=== PATIENT | female | born 1955 | race Caucasian/White ===

== ENCOUNTER → 2017-12-10 | Outpatient (CLI) | payer OTHER ==
--- NOTE | 2017-12-14 07:44 | MAMMOGRAPHY REPORT ---
BILATERAL DIGITAL SCREENING MAMMOGRAM TOMOSYNTHESIS WITH CAD: 12/10/2017 CLINICAL HISTORY: Routine screening. Patient has no complaints. TECHNIQUE: The study was acquired using full field digital technology and interpreted from soft copy. Breast tomosynthesis in addition to standard 2D mammography was performed. Current study was also ev aluated with a Computer Aided Detection (CAD) system. COMPARISON: Comparison is made to exams dated: 03/09/2013 mammogram, 11/13/2011 mammogram, 10/18/2010 mammogram, 10/16/2009 mammogram - [facility], and 09/12/2008. BREAST COMPOSITION: The tissue of both breasts is heterogeneously dense, which may obscure small mass es. FINDINGS: There is an oval circumscribed 6 mm mass within the right superior breast at approximately 12:00, for which spot compression tomosynthesis views and possible breast ultrasound are recommended for furthe r evaluation. The remainder of both breasts are stable compared to prior exams, without suspicious masses, calcific ations, or areas of architectural distortion noted. Scattered bilateral benign-appearing calcificati ons are again noted. IMPRESSION: ACR BI-RADS CATEGORY 0: INCOMPLETE EVALUATION: NEED ADDITIONAL IMAGING EVALUATION Right breast mass, for which additional imaging evaluation is recommended. The patient will be billings d to schedule an appointment. Some breast cancers are not detected with mammography. A negative mammographic report should not ting y biopsy if a clinically suggestive mass is present. Monse Miranda M.D. /:12/10/2017 16:04:03 Director Of Employee Development: Coni Johnson RT(R)(M), [facility] letter sent: Addl Imaging 0 BI-RADS Code: ACR BI-RADS Category 0: Incomplete Evaluation: Need Additional Imaging Evaluation
== END | disposition home or self-care (01) ==
LOC: C.MAMM 11:29
PROVIDERS: ATTEND Obstetrics & Gynecology
DX: Z12.31 Encounter for screening mammogram for malignant neoplasm of breast (principal); N63.10 Unspecified lump in the right breast, unspecified quadrant

== ENCOUNTER → 2017-12-22 | Outpatient (CLI) | payer OTHER ==
--- NOTE | 2017-12-22 15:22 | MAMMOGRAPHY REPORT ---
UNILATERAL RIGHT DIGITAL DIAGNOSTIC MAMMOGRAM TOMOSYNTHESIS AND RIGHT ULTRASOUND: 12/22/2017 CLINICAL HISTORY: 62-year-old woman called back from screening mammography for a 6 mm mass in the rig ht superior breast at approximately 12:00. TECHNIQUE: Spot compression right CC and MLO tomosynthesis images; full-field right CC and MLO tomosy nthesis images were obtained after placement of a skin BB marker. COMPARISON: Comparison is made to exams dated: 12/10/2017 mammogram, 03/09/2013 mammogram, 11/13/2011 mammogram, 10/18/2010 mammogram, and 10/16/2009 mammogram - [facility]. Ultrasound of the right breast was performed. BREAST COMPOSITION: The tissue of right breast is heterogeneously dense, which may obscure small mass es. FINDINGS: The spot compression tomosynthesis views of the right breast demonstrate a persistent oval versus dumbbell-shaped circumscribed mass measuring 3.1 x 5.9 x 3.2 mm, located in the approximate 12 :00 to 12:30 right breast. There is possible internal layering calcification. No suspicious cluster ed calcification or architectural distortion. Further evaluation with ultrasound was performed. Targeted ultrasound was performed in the 12:00 to 1:00 right breast. In the 12:30 axis, 3 cm from th e nipple, there is a circumscribed anechoic benign simple cyst with thin internal nonvascular septati on which measures 5.6 x 2.7 x 2.8 mm. This is thought to correspond with the mammographic finding bu t for confirmation, a skin BB was placed overlying the skin of the right 12:30 breast and full-field right CC and MLO views were performed. Both of these images demonstrate alignment of the BB marker w ith the mammographic mass in question, confirming a benign cyst. Recommend return to annual screenin g mammography schedule. IMPRESSION: ACR BI-RADS CATEGORY 2: BENIGN, ULTRASOUND ACR BI-RADS CATEGORY 2: BENIGN The newly visualized mammographic mass in the right breast corresponds with an anechoic benign 5.6 mm cyst seen in the 12:30 right breast, 3 cm from the nipple on ultrasound. There is no mammographic o r targeted sonographic evidence of malignancy in the right breast. Return to annual mammogram screen ing schedule is recommended.(12/11/2018) The patient has been verbally notified of the results. Some breast cancers are not detected with mammography. A negative mammographic report should not ting y biopsy if a clinically suggestive mass is present. Sheri Palacio M.D. ay/:12/22/2017 11:10:43 Buy Boat Operator: RT Lupis(R)(M), [facility]; [facility] letter sent: Normal 1/2 OVERALL STUDY BIRADS: 2 Benign
== END | disposition home or self-care (01) ==
LOC: C.MAMM 10:37
PROVIDERS: ATTEND Obstetrics & Gynecology
DX: N60.02 Solitary cyst of left breast (principal)

== ENCOUNTER 2022-04-06 11:43 | Inpatient (IN) ==
[2022-04-06] MEDS ORDERED: ACETAMINOPHEN 325 MG TAB PO STA ×2 (12:48→16:53)
--- NOTE | 2022-04-06 12:53 | Emergency Department Note ---
History of Present Illness General Chief complaint: Leg Injury/Pain Stated complaint: left leg injury Time Seen by Provider: 04/06/22 12:37 History of Present Illness Maximum Pain Intensity: 9 This is a 66-year-old female who presents with an injury to her left lower leg secondary to open fall that occurred prior to arrival while hiking. She was walking down a slope with leaves and rocks on it when she slipped and injured the leg. This was not a significant fall, did not hit her head or injure anything else. She basically sat down awkwardly on the left leg. Has been unable to bear weight on the left leg since the accident. Denies any headache, neck pain, back pain, chest pain, shortness of breath, abdominal pain, nausea, vomiting, numbness in the toes.. No prior injuries or surgeries to this leg, ankle, or foot. Has not taken anything for pain Not on blood thinners. Home Medications Medication Instructions Recorded Confirmed Type acetaminophen 325 mg capsule 325 mg PO QID PRN 06/18/21 02/17/22 History (Tylenol) ibuprofen 200 mg capsule (Motrin 200 mg PO Q6H PRN 06/18/21 02/17/22 History IB) calcium carbonate 600 mg calcium 600 mg PO BID 11/11/21 02/17/22 History (1,500 mg) tablet diphenhydramine HCl 25 mg tablet 25 mg PO TID PRN 11/11/21 02/17/22 History (Allergy (diphenhydramine)) Allergies Allergy/AdvReac Type Severity Reaction Status Date / Time Sulfa (Sulfonamide Allergy Mild Rash Verified 02/17/22 11:42 Antibiotics) Past Med/Surg History Medical History Anxiety no meds Closed fracture of left distal tibia History of colon polyps History of uterine fibroid Migraine Plantar wart, left foot Sciatica of left side Severe needle phobia Surgical History H/O dilation and curettage History of colonoscopy History of open reduction and internal fixation (ORIF) procedure right leg--no hardware History of tooth extraction Family History Sister Family history of reaction to anesthesia unsure what happened...questionable allergic reaction, pt has no idea and states she can't talk with sister Father Family history of esophageal cancer Aunt Family hx of colon cancer Breast cancer paternal Colorectal cancer paternal aunt Dyslipidemia paternal Mother Dyslipidemia Hypertension Kidney stones Denies family history of Ovarian cancer Prostate cancer Lung cancer Social History Smoking Status: Never smoker Second Hand Exposure: No; Do You Dip or Chew Tobacco: No; Tobacco Cessation Education Requested by Patient: No Hx Alcohol Use: No Hx Substance Use: No Preferred Language: Yoruba Communication Ability: Effective Visual Impairment: Limited Hearing Ability: Normal Health Care Attorney Required: No Beliefs That Will Affect Care: None Current Living Situation: Significant Other Current Living Situation Comment: Lives with a friend current occupational status: retired Other Information That Helps Us Care for You: No other: Feels Safe at Home: Yes Safety Concerns: Feels Safe At This Time Childhood Exposure to Second-Hand Smoke: No caffeine: Yes Dental Care, Regularly: Yes Physical Activity Frequency: 5-6 Times per Week Seatbelt Use: always Sunscreen Use: Yes Assistive Devices: Glasses Review of Systems See HPI for pertinent positives & negatives. and A total of 10 systems reviewed and were otherwise negative Physical Exam Vital Signs Vital Signs - 24 hr 04/06/22 11:50 Temperature 98.1 F Temperature Source Temporal Artery Scan Pulse Rate 88 Pulse Rhythm Regular Pulse Strength Normal Respiratory Rate 20 Respiratory Effort / Characteristics Non-Labored Spontaneous Respiratory Depth Normal Respiratory Pattern Regular Blood Pressure 159/101 H Blood Pressure Mean 120 Blood Pressure Position Sitting Pulse Oximetry 97 Oxygen Delivery Method Room Air Sepsis Recent Fever Within 48 Hours No Sepsis New/Unexplained Change in Mental Status N/A Sepsis Action Taken by Nursing No Action Required CONSTITUTIONAL: Well developed, well nourished, appears to be in pain. HEAD: Normocephalic, atraumatic. NECK: Full active range of motion. No spinous process tenderness. Full range of motion without eliciting pain. RESPIRATORY: Breathing unlabored and symmetric. Lungs clear to auscultation bilaterally. No wheeze, rales, or rhonchi. CARDIOVASCULAR: Regular rate and rhythm. No murmurs, rubs, or gallops. DP and PT pulses 2+ bilaterally. CHEST: Nontender, no crepitus. ABDOMEN: Normal bowel sounds. Soft, nontender, no peritonitis. No masses. MUSCULOSKELETAL: Moves bilateral upper and right lower extremities at all joints without pain or difficulty. Pelvis stable, nontender. Left lower extremity: Deformity appreciated in the distal lower leg, no skin disruption, no ecchymosis. There is mild swelling. Hip and knee full range of motion nontender. No proximal fibular tenderness. There is lateral lower leg tenderness. Able to move all toes. Back: No thoracic, lumbar, sacral spinous process tenderness. No step-off deformity. SKIN: [place], warm, dry. Capillary refill less than 2 seconds in bilateral toes. NEUROLOGIC: Awake, alert, oriented. Gaze is conjugate. Face symmetric. No sensory deficits in bilateral toes. PSYCHIATRIC: Anxious appearing, otherwise appropriate. Course Consultations Consultation #1: Spoke with Dr. White (orthopedics on-call) regarding the case and imaging findings. He visualized the images. Recommends hospital admission with Ortho consult. Will surgically repair tomorrow. Requests a CT scan for surgical planning purposes. Posterior short leg splint recommended. Consultation #2: Discussed case with Dr. Cox (hospitalist) who agrees to admit the patient. Administered Medications Acetaminophen (Acetaminophen 325 Mg Tab) 650 mg PO Q4H PRN PRN Reason: Mild Pain Or Fever Stop: 05/06/22 18:14 Last Admin: 04/06/22 20:16 Dose: 650 mg Documented By: OTIS Calcium Carbonate (Calcium Carbonate 1250mg Tab) 1,250 mg PO BID QUIANA Stop: 05/06/22 20:59 Last Admin: 04/06/22 20:16 Dose: 1,250 mg Documented By: OTIS Discontinued Medications Acetaminophen (Acetaminophen 325 Mg Tab) 650 mg PO NOW STA Stop: 04/06/22 12:49 Last Admin: 04/06/22 12:58 Dose: 650 mg Documented By: ED Acetaminophen (Acetaminophen 325 Mg Tab) 650 mg PO NOW STA Stop: 04/06/22 16:54 Last Admin: 04/06/22 17:09 Dose: 650 mg Documented By: SLB Medical Decision Making Differential Diagnosis Fracture, dislocation, subluxation, compartment syndrome, sprain, strain, neurovascular injury, among other pathology Medical Records Attestation: I reviewed the patient's medical records. Imaging Data Radiologist's Impression: Ankle X-Ray 04/06/22 12:48 XR tibia fibula LT 2V, XR ankle LT min 3V routine CLINICAL HISTORY: lateral lower leg injury TECHNIQUE: 2 radiographic views of the right leg and 3 views of the left ankle were obtained. Comparison: None available at the time of this dictation. FINDINGS: Comminuted intra-articular fracture of the distal tibial diaphysis and spiral fracture of the distal fibular metaphysis. Joint spaces are well-preserved. Soft tissue swelling is seen. IMPRESSION: Comminuted intra-articular fracture of the distal tibia and spiral fracture of the distal fibula with associated soft tissue swelling. The tibiofibular syndesmosis is likely involved. ACT 112: Negative or not required by law. Electronically signed by: Nathan Bettencourt M.D. 04/06/2022 1:49 PM Tibia/Fibula X-Ray 04/06/22 12:49 XR tibia fibula LT 2V, XR ankle LT min 3V routine CLINICAL HISTORY: lateral lower leg injury TECHNIQUE: 2 radiographic views of the right leg and 3 views of the left ankle were obtained. Comparison: None available at the time of this dictation. FINDINGS: Comminuted intra-articular fracture of the distal tibial diaphysis and spiral fracture of the distal fibular metaphysis. Joint spaces are well-preserved. Soft tissue swelling is seen. IMPRESSION: Comminuted intra-articular fracture of the distal tibia and spiral fracture of the distal fibula with associated soft tissue swelling. The tibiofibular syndesmosis is likely involved. ACT 112: Negative or not required by law. Electronically signed by: Nathan Bettencourt M.D. 04/06/2022 1:[address] 04/06/22 14:13 CT ankle LT wo con CLINICAL HISTORY: tib fib fracture TECHNIQUE: Multidetector row helical CT of the tibia and fibula was performed without intravenous contrast. Coronal and sagittal reformations were obtained. Automated dose lowering techniques and/or adjustment according to patient size were utilized for this examination. CT DOSE: 191.37 mGy.cm Comparison: Comparison is made to ankle radiograph 04/06/2022 FINDINGS: There is a mildly comminuted fracture of the fibula. There is a comminuted fracture of the distal tibia which extends to the articular surface. In addition there is a fracture of the lateral aspect of the tibia at the tibiofibular syndesmosis. There is no widening of the tibiofibular syndesmosis. A small joint effusion is noted. Soft tissue swelling is seen. IMPRESSION: Comminuted fractures of the distal tibia and fibula with associated soft tissue swelling. The tibial fracture extends to the distal tibiofibular articulation as well as the articular surface with the talus. ACT 112: Negative or not required by law. Electronically signed by: Nathan Bettencourt M.D. 04/06/2022 4:34 PM MDM Narrative 66-year-old female presents with an injury to the left lower leg secondary to a slip and fall while hiking. Physical exam findings as above appear to be isolated to the left lower leg. No additional injuries identified on thorough physical exam. She is neurovascularly intact. Pain control was offered to the patient. She only wanted to take Tylenol due to her concerns with narcotic medication and addiction. X-ray of the left ankle and tibia/fibula demonstrates comminuted fractures of the distal tibia and fibula. Case discussed with orthopedics as described above who requested inpatient hospitalist admission and will surgically repair tomorrow. Spoke with hospitalist as described above who agrees to admit the patient. Case discussed with ED attending Dr. Zimmerman. CT of the ankle pending at time of admission. Short leg posterior and stirrup Ortho-Glass splint applied by ballistic technician and I confirmed appropriate application and neurovascular intact status after application. Impression & Plan Fracture of tibia and fibula, Fall from slip, trip, or stumble Discharge Plan Visit Data Chief Complaint: Leg Injury/Pain Stated Complaint: left leg injury ED Provider: Jalen Zimmerman ED Midlevel Provider: Tyrell [place] Discharge Problem: Fracture of tibia and fibula, Fall from slip, trip, or stumble Patient Disposition: Admitted As Inpatient Condition: Fair Discharge Instructions Interventions: ED Discharge Assessment Last Done: 04/06/22 17:55
--- NOTE | 2022-04-06 13:50 | XRay Report ---
XR tibia fibula LT 2V, XR ankle LT min 3V routine CLINICAL HISTORY: lateral lower leg injury TECHNIQUE: 2 radiographic views of the right leg and 3 views of the left ankle were obtained. Comparison: None available at the time of this dictation. FINDINGS: Comminuted intra-articular fracture of the distal tibial diaphysis and spiral fracture of the distal fibular metaphysis. Joint spaces are well-preserved. Soft tissue swelling is seen. IMPRESSION: Comminuted intra-articular fracture of the distal tibia and spiral fracture of the distal fibula with associated soft tissue swelling. The tibiofibular syndesmosis is likely involved. ACT 112: Negative or not required by law. Electronically signed by: Nathan Bettencourt M.D. 04/06/2022 1:49 PM
--- NOTE | 2022-04-06 14:18 | History & Physical Report ---
Date of Service April 06, 2022 Assessment & Plan (1) Closed fracture of left distal tibia: Plan: - XR: Comminuted intra-articular fracture of the distal tibia and spiral fracture of the distal fibula with associated soft tissue swelling. The tibiofibular syndesmosis is likely involved. - NV intact. - CT ordered per orthopedic recommendations. - Orthopedic consulted, recommending medical admission and will see patient in AM for surgical repair. - Pain control: Tylenol is working well for now, patient is hesitant to use narcotics for pain control but also expresses she does not want to be in severe pain overnight. Agreeable to low dose IV morphine for moderate or severe pain not controlled with Tylenol. - NPO at midnight for OR tomorrow. - NV q4h. Plan - Admit to med/surg. History of Present Illness Chief Complaint: Fall this afternoon while hiking Primary Care Provider: Amada Suarez MD Susan Bucio is a previously healthy 66-year-old female who is presenting to the ED today after a fall during a hike today. She was walking down hill and slipped on some leaves, landing on her left leg. She had terrible pain immediatley and was nearly certain she broke something. She has been unable to walk on the leg. She denies hitting her head or any loss of consciousness. She is not having pain elsewhere except for in her left ankle. She is not on any blood thinners, actually she takes no regular medications at home. She received Tylenol in the ED for pain which has been helping. Imaging shows comminuted intra-articular fracture of the distal tibia and spiral fracture of the distal fibula with associated soft tissue swelling and tibi ofibular stenosis. The case was discussed with the on-call orthopedist, who recommended admission to medicine. CT of left leg ordered. Allergies Allergy/AdvReac Type Severity Reaction Status Date / Time Sulfa (Sulfonamide Allergy Mild Rash Verified 02/17/22 11:42 Antibiotics) Home Medications Medication Instructions Recorded Confirmed Type acetaminophen 325 mg capsule 325 mg PO QID PRN 06/18/21 02/17/22 History (Tylenol) ibuprofen 200 mg capsule (Motrin 200 mg PO Q6H PRN 06/18/21 02/17/22 History IB) calcium carbonate 600 mg calcium 600 mg PO BID 11/11/21 02/17/22 History (1,500 mg) tablet diphenhydramine HCl 25 mg tablet 25 mg PO TID PRN 11/11/21 02/17/22 History (Allergy (diphenhydramine)) Past Med/Surg History Medical History (Updated 04/06/22 @ 14:52 by Magalis Hughes PA-C) Anxiety no meds Closed fracture of left distal tibia History of colon polyps History of uterine fibroid Migraine Plantar wart, left foot Sciatica of left side Severe needle phobia Surgical History H/O dilation and curettage History of colonoscopy History of open reduction and internal fixation (ORIF) procedure right leg--no hardware History of tooth extraction Family History Sister Family history of reaction to anesthesia unsure what happened...questionable allergic reaction, pt has no idea and states she can't talk with sister Father Family history of esophageal cancer Aunt Family hx of colon cancer Breast cancer paternal Colorectal cancer paternal aunt Dyslipidemia paternal Mother Dyslipidemia Hypertension Kidney stones Denies family history of Ovarian cancer Prostate cancer Lung cancer Social History Smoking Status: Never smoker Second Hand Exposure: No; Hx Alcohol Use: No Hx Substance Use: No Preferred Language: Ukrainian Communication Ability: Effective Visual Impairment: Limited Hearing Ability: Normal Preschool Assistant Teacher Required: No Beliefs That Will Affect Care: None Current Living Situation: Other Current Living Situation Comment: Lives with a friend current occupational status: retired other: Feels Safe at Home: Yes Childhood Exposure to Second-Hand Smoke: No caffeine: Yes Dental Care, Regularly: Yes Physical Activity Frequency: 5-6 Times per Week Seatbelt Use: always Sunscreen Use: Yes Assistive Devices: Glasses Review of Systems Review of Systems: Constitutional: No fever/chills, weakness, fatigue, myalgias, anorexia, night sweats Eyes: No diplopia, no worsening or blurred vision ENT: normal hearing, no trouble swallowing Respiratory: No cough, sputum, dyspnea at rest or on exertion Cardiovascular: No chest pain, tightness or palpitations Abdomen: No pain, nausea, vomiting, diarrhea or constipation : Denies dysuria, hematuria, increased urgency/frequency, urinary retention Musculoskeletal: left lower leg/ankle pain with any movement, minimal at rest with some tingling; No joint pain, calf pain, swelling Neurologic: No weakness, numbness/tingling, or balance problems Psychiatric: No anxiety or depression Skin: No rash or itch Physical Exam Physical Exam: General: awake, alert, no apparent distress Head: Normocephalic, atraumatic ENT: PERRL, EOMI, no pharyngeal exudate, mucous membranes moist Chest: Clear to auscultation, on room air, no adventitious breath sounds Cardiac: Regular rate and rhythm, no murmur, no JVD, normal peripheral pulses, good capillary refill Abdominal: NABS x 4 quadrants, soft, nontender to palpation, no rebound, guarding or tenderness Extremities: left ankle swelling, no eccyhmosis, open wound, skin changes; mildly TTP; pulses intact 2+ b/l skin warm, sensation intact and equal b/l. Psych: Normal mood and affect Neuro: AAO x 3, strength intact bilaterally and rated 5/5, no motor deficits, speech is clear, no peripheral sensory deficits Skin: no rash or erythema Results & Data Results & Data ([facility]) Vital Signs (Past 12 Hours) Vital Signs Temp Pulse Resp BP Pulse Ox O2 Del Method 04/06/22 11:50 36.7 C 88 20 159/101 H 97 Room Air Diagnostic Findings Ankle X-Ray 04/06/22 12:48 XR tibia fibula LT 2V, XR ankle LT min 3V routine CLINICAL HISTORY: lateral lower leg injury TECHNIQUE: 2 radiographic views of the right leg and 3 views of the left ankle were obtained. Comparison: None available at the time of this dictation. FINDINGS: Comminuted intra-articular fracture of the distal tibial diaphysis and spiral fracture of the distal fibular metaphysis. Joint spaces are well-preserved. Soft tissue swelling is seen. IMPRESSION: Comminuted intra-articular fracture of the distal tibia and spiral fracture of the distal fibula with associated soft tissue swelling. The tibiofibular syndesmosis is likely involved. ACT 112: Negative or not required by law. Electronically signed by: Nathan Bettencourt M.D. 04/06/2022 1:49 PM Tibia/Fibula X-Ray 04/06/22 12:49 XR tibia fibula LT 2V, XR ankle LT min 3V routine CLINICAL HISTORY: lateral lower leg injury TECHNIQUE: 2 radiographic views of the right leg and 3 views of the left ankle were obtained. Comparison: None available at the time of this dictation. FINDINGS: Comminuted intra-articular fracture of the distal tibial diaphysis and spiral fracture of the distal fibular metaphysis. Joint spaces are well-preserved. Soft tissue swelling is seen. IMPRESSION: Comminuted intra-articular fracture of the distal tibia and spiral fracture of the distal fibula with associated soft tissue swelling. The tibiofibular syndesmosis is likely involved. ACT 112: Negative or not required by law. Electronically signed by: Nathan Bettencourt M.D. 04/06/2022 1:49 PM Code Status & VTE Plan Code Status Full Code. Supervising Physician Co-Signing Physician Notes Patient seen and examined, chart reviewed, case discussed with Magalis Hughes PA-C and I agree with the assessment and plan as above except as otherwise noted Labs and images reviewed Susan is seen at the bedside. She is a healthy 66-year-old female who enjoys hiking and skiing regularly, she reports that she hikes walks and is very active with no chest pain, chest pressure, shortness of breath, lightheadedness, dizziness. She reports she was hiking and was coming to the bottom of the [place] when she slipped on some wet leaves causing her to fall and twist/strike her leg with immediate pain in the ankle. She did not strike her head, had no loss of consciousness, and no dizziness that led to her fall. She reports she had i mmediate pain in the ankle, in ER she is found to have a tib-fib fracture involving the articular surface. Case was discussed with orthopedics who requested medical admission and orthopedic consultation for the morning. Per discussion with [facility] patient is okay to remain at her facility, anticipate operative fix with nailing in the morning. At bedside assessment breathing is unlabored, heart rate is regular. Patient reports that with her leg externally rotated and resting her pain is tolerable, and improved after Tylenol. She is very hesitant and fearful to take narcotics due to which she has read about the potential for addiction. She reports her pain is currently tolerable and had some slight intermittent tingling in the foot but currently sensation is normal, intact and symmetrical compared to the right. Sensation to soft touch is intact and symmetrical at the medial, lateral, plantar, and dorsal foot and symmetrical to the right foot. Her right distal leg has a well-healed postoperative scar from a prior fracture many years ago, patient reports that she had a plate/screws placed which were subsequently removed without difficulty. Dorsalis pedis pulses are palpable bilaterally, cap refill is brisk bilaterally. Toe flexion/extension is intact without pain. No signs of neurovascular compromise. Patient will be admitted to medical surgical with pulses/sensation checks, discussed with orthopedics, follow with pain control. Clears until midnight, n.p.o. after midnight, anticipate operative repair in the morning. PG Care Time/CCT Total # of Minutes Spent Total Time Spent with Patient: Total time spent is greater than 50% in coordination of care (as documented) at patient's floor/unit and/or counseling patient: Coding Level of Care Code 57562 Initial Inpt Care Lvl 3 Diagnoses Closed fracture of left distal tibia S82.302A
--- NOTE | 2022-04-06 16:36 | CT Scan Report ---
CT ankle LT wo con CLINICAL HISTORY: tib fib fracture TECHNIQUE: Multidetector row helical CT of the tibia and fibula was performed without intravenous con trast. Coronal and sagittal reformations were obtained. Automated dose lowering techniques and/or adj ustment according to patient size were utilized for this examination. CT DOSE: 191.37 mGy.cm Comparison: Comparison is made to ankle radiograph 04/06/2022 FINDINGS: There is a mildly comminuted fracture of the fibula. There is a comminuted fracture of the distal tib ia which extends to the articular surface. In addition there is a fracture of the lateral aspect of t he tibia at the tibiofibular syndesmosis. There is no widening of the tibiofibular syndesmosis. A sma ll joint effusion is noted. Soft tissue swelling is seen. IMPRESSION: Comminuted fractures of the distal tibia and fibula with associated soft tissue swelling. The tibial fracture extends to the distal tibiofibular articulation as well as the articular surface with the ta paul. ACT 112: Negative or not required by law. Electronically signed by: Nathan Bettencourt M.D. 04/06/2022 4:34 PM
[2022-04-06] MEDS ORDERED: POLYETHYLENE (MIRALAX) 17 GM PACK PO PRN (18:15)
[2022-04-06] MEDS ORDERED: ONDANSETRON INJ 2 MG/ML 2 ML VIAL IV PRN (18:15)
[2022-04-06] MEDS ORDERED: MoRPHine SULFATE 2 MG/ML CARP IV PRN (18:15)
[2022-04-06] MEDS ORDERED: ALUMINUM/MAGNESIUM SUSP 30 ML UDC PO PRN (18:15)
[2022-04-06] MEDS ORDERED: bisacodyL 5 MG TABEC PO PRN (18:15)
[2022-04-06] MEDS: CALCIUM CARBONATE 1250MG TAB PO SCH (20:16)
[2022-04-06] MEDS: ACETAMINOPHEN 325 MG TAB PO PRN (20:16)
--- NOTE | 2022-04-07 07:31 | Orthopedic Consultation ---
Date of Consultation April 07, 2022 Assessment & Plan (1) Closed fracture of left distal tibia: discussed care with patient, patient will remain NPO for surgery later today with Dr White. plan will be left Open Reduction Internal Fixation Intramedullary Nail left tibia. remain splinted, cont to ice/elevate, NWB. she otherwise has no other questions or concerns. The risks and benefits have been discussed including, but not limited to, risk of infection, nerve injury, stiffness, loss of motion, failure to improve, etc. Reasonable outcomes and options of treatment were discussed. An explanation of appropriate alternatives to the procedure that may be advantageous were discussed and their risks and benefits, as well as the risks and benefits of not proceeding with treatment. I offered to answer any additional inquiries concerning the treatment involved. All the patient's questions were answered. The patient is agreeable, understanding of the treatment plan and alternatives, and wishes to proceed with the treatment plan. Supervising Physician Co-Signing Physician Notes Met with patient. Given her fracture I did discuss with her left tibia intramedullary nail with possible open reduction internal fixation of her left ankle. Risk include but are not limited to infection, neurovascular injury, DVT, nonunion, malunion, persistent anterior knee pain as well as hardware failure and need for future surgery. After reviewing these she has elected to proceed with surgical intervention and written consent has been obtained. History of Present Illness Reason for Consultation: left tibia/fibula fracture Attending Physician: Terry Cox MD History of Present Illness Susan is a 66 year old female who presented to the ER last evening with an injury to her left lower leg secondary to a fall while hiking, states she slipped on leaves that were covering some loose gravel. it occurred on her way back down the hike and was close to a gravel road. she denies any other injuries, did not hit her head or lose consciousness. denies any previous injuries or trauma to this leg, but did have a similar injury to her right leg as a child which required IM nail as well. Allergies Allergy/AdvReac Type Severity Reaction Status Date / Time Sulfa (Sulfonamide Allergy Mild Rash Verified 02/17/22 11:42 Antibiotics) Home Medications Medication Instructions Recorded Confirmed Type acetaminophen 325 mg capsule 325 mg PO QID PRN 06/18/21 02/17/22 History (Tylenol) ibuprofen 200 mg capsule (Motrin 200 mg PO Q6H PRN 06/18/21 02/17/22 History IB) calcium carbonate 600 mg calcium 600 mg PO BID 11/11/21 02/17/22 History (1,500 mg) tablet diphenhydramine HCl 25 mg tablet 25 mg PO TID PRN 11/11/21 02/17/22 History (Allergy (diphenhydramine)) Patient History Medical History Anxiety no meds Closed fracture of left distal tibia History of colon polyps History of uterine fibroid Migraine Plantar wart, left foot Sciatica of left side Severe needle phobia Surgical History H/O dilation and curettage History of colonoscopy History of open reduction and internal fixation (ORIF) procedure right leg--no hardware History of tooth extraction Family History Sister Family history of reaction to anesthesia unsure what happened...questionable allergic reaction, pt has no idea and states she can't talk with sister Father Family history of esophageal cancer Aunt Family hx of colon cancer Breast cancer paternal Colorectal cancer paternal aunt Dyslipidemia paternal Mother Dyslipidemia Hypertension Kidney stones Denies family history of Ovarian cancer Prostate cancer Lung cancer Social History Smoking Status: Never smoker Second Hand Exposure: No; Do You Dip or Chew Tobacco: No; Tobacco Cessation Education Requested by Patient: No Hx Alcohol Use: No Hx Substance Use: No Preferred Language: Palestinian Communication Ability: Effective Visual Impairment: Limited Hearing Ability: Normal Fourth Mate Required: No Beliefs That Will Affect Care: None marital status: Current Living Situation: Significant Other Current Living Situation Comment: Lives with a friend current occupational status: retired Other Information That Helps Us Care for You: No other: Feels Safe at Home: Yes Safety Concerns: Feels Safe At This Time Childhood Exposure to Second-Hand Smoke: No caffeine: Yes Dental Care, Regularly: Yes Physical Activity Frequency: 5-6 Times per Week Seatbelt Use: always Sunscreen Use: Yes Assistive Devices: None Review of Systems Review of Systems: All systems reviewed & are unremarkable except as noted in HPI & below Constitutional: no fever, no chills and no sweats Respiratory: no cough and no dyspnea Cardiovascular: no chest pain, no dyspnea and no orthopnea Gastrointestinal: no abdominal pain, no nausea and no vomiting Musculoskeletal: as per Subjective / HPI Physical Exam Physical Exam: Vital Signs Temp Pulse Pulse Pulse Resp BP BP 04/07/22 07:25 36.8 C 71 20 146/92 H 04/06/22 22:11 36.9 C 66 18 154/92 H 04/06/22 18:17 36.9 C 77 20 161/82 H 04/06/22 17:55 80 16 168/87 H 04/06/22 17:11 77 18 04/06/22 15:31 70 16 04/06/22 11:50 36.7 C 88 20 159/101 H BP Pulse Ox O2 Del Method 04/07/22 07:25 97 Room Air 04/06/22 22:11 95 Room Air 04/06/22 18:17 96 Room Air 04/06/22 17:55 97 Room Air 04/06/22 17:11 169/81 H 96 Room Air 04/06/22 15:31 174/86 H 97 Room Air 04/06/22 11:50 97 Room Air Intake and Output 04/06/22 04/07/22 04/07/22 22:59 06:59 14:59 Output Total 350 / 350 Balance -350 / -350 Output: Urine 350 / 350 Other: # Unmeasured Voi ds 1 1 Weight 73.6 kg Weight Measureme nt Method Built in [facility] Constitutional: WD/WN, vitals as above no acute distress Respiratory: normal respiratory effort, lungs clear to auscultation no respiratory distress, no labored breathing and does not use accessory muscles Cardiovascular: RRR, no murmur, no edema Gastrointestinal (Abdomen): normal bowel sounds, soft, nontender, no hepatosplenomegaly Musculoskeletal: left leg: currently splinted. able to wiggle her toes, cap refill less than 2 sec. sensation intact to light touch. Results & Data ([facility]) Vital Signs (Past 12 Hours) Vital Signs Temp Pulse Resp BP Pulse Ox O2 Del Method 04/07/22 07:25 36.8 C 71 20 146/92 H 97 Room Air 04/06/22 22:11 36.9 C 66 18 154/92 H 95 Room Air Laboratory Results Laboratory Results SARS-CoV-2, RNA, NAAT NEGATIVE (NEGATIVE) 04/06/22 15:30 Impressions Ankle X-Ray 04/06/22 12:48 XR tibia fibula LT 2V, XR ankle LT min 3V routine CLINICAL HISTORY: lateral lower leg injury TECHNIQUE: 2 radiographic views of the right leg and 3 views of the left ankle were obtained. Comparison: None available at the time of this dictation. FINDINGS: Comminuted intra-articular fracture of the distal tibial diaphysis and spiral fracture of the distal fibular metaphysis. Joint spaces are well-preserved. Soft tissue swelling is seen. IMPRESSION: Comminuted intra-articular fracture of the distal tibia and spiral fracture of the distal fibula with associated soft tissue swelling. The tibiofibular syndesmosis is likely involved. ACT 112: Negative or not required by law. Electronically signed by: Nathan Bettencourt M.D. 04/06/2022 1:49 PM Tibia/Fibula X-Ray 04/06/22 12:49 XR tibia fibula LT 2V, XR ankle LT min 3V routine CLINICAL HISTORY: lateral lower leg injury TECHNIQUE: 2 radiographic views of the right leg and 3 views of the left ankle were obtained. Comparison: None available at the time of this dictation. FINDINGS: Comminuted intra-articular fracture of the distal tibial diaphysis and spiral fracture of the distal fibular metaphysis. Joint spaces are well-preserved. Soft tissue swelling is seen. IMPRESSION: Comminuted intra-articular fracture of the distal tibia and spiral fracture of the distal fibula with associated soft tissue swelling. The tibiofibular syndesmosis is likely involved. ACT 112: Negative or not required by law. Electronically signed by: Nathan Bettencourt M.D. 04/06/2022 1:[address] 04/06/22 14:13 CT ankle LT wo con CLINICAL HISTORY: tib fib fracture TECHNIQUE: Multidetector row helical CT of the tibia and fibula was performed without intravenous contrast. Coronal and sagittal reformations were obtained. Automated dose lowering techniques and/or adjustment according to patient size were utilized for this examination. CT DOSE: 191.37 mGy.cm Comparison: Comparison is made to ankle radiograph 04/06/2022 FINDINGS: There is a mildly comminuted fracture of the fibula. There is a comminuted fracture of the distal tibia which extends to the articular surface. In addition there is a fracture of the lateral aspect of the tibia at the tibiofibular syndesmosis. There is no widening of the tibiofibular syndesmosis. A small joint effusion is noted. Soft tissue swelling is seen. IMPRESSION: Comminuted fractures of the distal tibia and fibula with associated soft tissue swelling. The tibial fracture extends to the distal tibiofibular articulation as well as the articular surface with the talus. ACT 112: Negative or not required by law. Electronically signed by: Nathan Bettencourt M.D. 04/06/2022 4:34 PM
[2022-04-07] MEDS: MoRPHine SULFATE 2 MG/ML CARP IV PRN ×2 (08:55→20:58)
[2022-04-07] MEDS: CALCIUM CARBONATE 1250MG TAB PO SCH ×2 (08:55→21:00)
--- NOTE | 2022-04-07 11:37 | Hospitalist Progress Note ---
Date of Service April 07, 2022 Assessment & Plan (1) Closed fracture of left distal tibia: Plan: - XR: Comminuted intra-articular fracture of the distal tibia and spiral fracture of the distal fibula with associated soft tissue swelling. The tibiofibular syndesmosis is likely involved. - CT ordered per orthopedic recommendations. - Orthopedic consulted, recommending medical admission and will see patient in AM for surgical repair. - Pain control: Tylenol for mild pain and IV morphine for moderate or severe pain not controlled with Tylenol. - NPO for OR today - NV checks q4h. - PT/OT eval post operatively - DVT ppx - I/S post op for atelectasis/pna prevention - CM assist in dc planning pending her therapy evals Plan Will discuss plan w/ Dr. Parry. Admission and Anticipated Discharge Date Admission Date: April 06, 2022 Subjective Patient was seen on daily rounds this morning. Hospitalized after sustaining a mechanical fall resulting in a left tib/fib fracture. She is for ORIF today with Dr. White. Her pain is adequately controlled. No prior h/o dvt/pe. She lives in a one story apartment but it's on the second story of the building and there is no elevator access. She is concerned with her ability to climb the stairs if she should return home. She denies cp or dyspnea. Review of Systems Review of Systems: All systems reviewed and are unremarkable except as noted in HPI and below. Denies fever, chills, fatigue, headache, nasal congestion, sore throat, cough, chest pain, shortness of breath, palpitations, orthopnea, PND, abdominal pain, n/v/d, constipation, dysuria, hematuria, frequency, back pain, easy bruising or bleeding, skin lesions or rashes. Physical Exam Physical Exam: GENERAL: 66 yo Well-developed, well-nourished WF. NAD. LUNGS: Clear to auscultation bilaterally. No W/R/R. CARDIOVASCULAR: Regular rate and rhythm. No M/G/R. No JVD. ABDOMEN: Soft, non-tender and non-distended. BS normoactive x 4 quad. EXTREMITIES: No edema. Non-tender. Peripheral pulses +2/4. Left LE in splint and wrapped in kyle. Cap refill <2 sec. DP pulse +2/4 NEUROLOGIC: A&O x3. PSYCHIATRIC: Cooperative. Appropriate mood and affect. SKIN: Warm, dry, intact. No rashes or lesions. Results & Data Results & Data ([facility]) Vital Signs (Past 12 Hours) Vital Signs Temp Pulse Resp BP Pulse Ox O2 Del Method 04/07/22 07:25 36.8 C 71 20 146/92 H 97 Room Air PG Care Time/CCT Total # of Minutes Spent Total Time Spent with Patient: Total time spent is greater than 50% in coordination of care (as documented) at patient's floor/unit and/or counseling patient: Coding Level of Care Code 20495 Subseq Hosp Care Lvl 2 Diagnoses Closed fracture of left distal tibia S82.302A
[2022-04-07] MEDS ORDERED: SODIUM CHLORIDE 0.9% 1000ML 1,000 ML IV SCH ×2 (15:15→20:15)
[2022-04-07] MEDS ORDERED: ePHEDrine sulfate 50 MG/ML SYR ONE (16:13)
[2022-04-07] MEDS ORDERED: LIDOCAINE 2% MPF LOCAL 5 ML VIAL INFIL ONE (16:13)
[2022-04-07] MEDS ORDERED: PHENYLEPHRINE 100MCG/ML 5ML SYR ONE (16:13)
[2022-04-07] MEDS ORDERED: PROPOFOL IV EMULSION 10 MG/ML 20 ML VIAL IV ONE (16:13)
[2022-04-07] MEDS ORDERED: fentaNYL citrate 100 MCG/2 ML VIAL ONE ×2 (16:14→17:51)
[2022-04-07] MEDS ORDERED: MIDAZOLAM HCL 1 MG/ML 2ML VIAL ONE (16:14)
[2022-04-07] MEDS ORDERED: ePHEDrine sulfate 50 MG/ML AMP IV PRN (16:16)
[2022-04-07] MEDS ORDERED: HYDROmorphone INJ 1 MG/ML SYRINGE IV PRN (16:16)
[2022-04-07] MEDS ORDERED: ONDANSETRON INJ 2 MG/ML 2 ML VIAL IV PRN (16:16)
[2022-04-07] MEDS ORDERED: ATROPINE SULFATE 0.1 MG/ML 10ML SYR IV PRN (16:16)
[2022-04-07] MEDS ORDERED: MEPERIDINE HCL 25 MG/ML CARP/VIAL IV PRN (16:16)
[2022-04-07] MEDS ORDERED: LABETALOL HCL IV 5 MG/ML 20ML IV PRN (16:16)
[2022-04-07] MEDS ORDERED: PHENYLEPHRINE 100MCG/ML 5ML SYR IV PRN (16:16)
--- NOTE | 2022-04-07 16:18 | Anesthesiology Consultation ---
Date of Service April 07, 2022 Assessment & Plan (1) Encounter for pre-operative examination: Chart Review Chart Review: Acceptable Risk for Surgery and Patient NOT seen in Pre Admission Testing Consults Requested none History Surgery Operation Date: 04/07/22 07:00 Proposed Procedures p Left Open Reduction Internal Fixation Intramedullary Nail Benal - Nhan White, DO Height/Weight Height: 5 ft 6 in Weight: 73.6 kg Allergies Allergy/AdvReac Type Severity Reaction Status Date / Time Sulfa (Sulfonamide Allergy Mild Rash Verified 02/17/22 11:42 Antibiotics) Medications Home Medications Medication Instructions Recorded Confirmed Last Taken acetaminophen 325 mg capsule 325 mg PO QID PRN 06/18/21 02/17/22 Unknown (Tylenol) ibuprofen 200 mg capsule (Motrin 200 mg PO Q6H PRN 06/18/21 02/17/22 Unknown IB) calcium carbonate 600 mg calcium 600 mg PO BID 11/11/21 02/17/22 Unknown (1,500 mg) tablet diphenhydramine HCl 25 mg tablet 25 mg PO TID PRN 11/11/21 02/17/22 Unknown (Allergy (diphenhydramine)) Active Medications Generic Name Dose Route Start Last Admin Trade Name Freq PRN Reason Stop Dose Admin Acetaminophen 650 mg 04/06/22 18:15 04/06/22 20:16 Acetaminophen 325 Mg Tab PO 05/06/22 18:14 650 mg Q4H PRN Administration Mild Pain Or Fever Calcium Carbonate 1,250 mg 04/06/22 21:00 04/07/22 08:55 Calcium Carbonate 1250mg Tab PO 05/06/22 20:59 Not Given BID QUIANA Sodium Chloride 1,000 mls @ 80 mls/hr 04/07/22 15:15 04/07/22 15:12 Nss 1000ml IV 05/07/22 15:14 80 mls/hr .[id number] QUIANA Administration Morphine Sulfate 2 mg 04/06/22 18:15 04/07/22 08:55 Morphine Sulfate 2 Mg/Ml Carp IV 04/20/22 18:14 2 mg Q4H PRN Administration Severe Pain Morphine Sulfate 1 mg 04/06/22 18:15 04/07/22 01:41 Morphine Sulfate 2 Mg/Ml Carp IV 04/20/22 18:14 1 mg Q4H PRN Administration Moderate Pain NPO Date Last Intake of Fluids: 04/06/22 Time Last Intake of Fluids: 23:59 Date Last Intake of Solids: 04/06/22 Time Last Intake of Solids: 23:59 Past Medical History Medical History Anxiety no meds Closed fracture of left distal tibia History of colon polyps History of uterine fibroid Migraine Plantar wart, left foot Sciatica of left side Severe needle phobia Past Family History Family History Sister Family history of reaction to anesthesia unsure what happened...questionable allergic reaction, pt has no idea and states she can't talk with sister Father Family history of esophageal cancer Aunt Family hx of colon cancer Breast cancer paternal Colorectal cancer paternal aunt Dyslipidemia paternal Mother Dyslipidemia Hypertension Kidney stones Denies family history of Ovarian cancer Prostate cancer Lung cancer Past Surgical History Surgical History H/O dilation and curettage History of colonoscopy History of open reduction and internal fixation (ORIF) procedure right leg--no hardware History of tooth extraction Social History Smoking Status: Never smoker Do You Dip or Chew Tobacco: No Hx Alcohol Use: No Hx Substance Use: No substance use type: does not use Physical Exam Vital Signs Last Vital Signs Temp 37.0 C 04/07/22 14:56 Pulse 66 04/07/22 14:56 Resp 18 04/07/22 14:56 BP 136/80 04/07/22 14:56 Pulse Ox 96 04/07/22 14:56 O2 Del Method 04/07/22 14:56 Testing Electrocardiogram Date: 04/06/22 Findings: + NSR @ (76) Chest X-Ray Date: 04/06/22 XR ribs RT min 2V w [id number] CLINICAL HISTORY: Right rib pain. COMPARISON: None FINDINGS: There is no pneumothorax or pleural effusion. No airspace opacities are present. Cardiac size is normal. Mediastinal contours are normal. No acute right rib fractures are identified. IMPRESSION: No acute right rib fractures. No pneumothorax. ACT 112: Negative or not required by law. Electronically signed by: Juan Diego Jade M.D. 06/06/2021 7:30 AM Dictated:06/06/21723 Transcribed: 06/06/21723
[2022-04-07] MEDS ORDERED: ceFAZolin 2,000 MG/15 ML IV PUSH IV ONE (17:19)
--- NOTE | 2022-04-07 17:38 | History & Physical Bridge Note ---
Date of Service April 07, 2022 History & Physical Bridge Note I have examined the patient, reviewed the History & Physical and in the interval since the performance of the History & Physical I have noted the following changes of clinical significance: no changes noted. Risk and benefits were previously discussed with patient regarding left tibia intramedullary nail with possible left ankle open reduction internal fixation. She is agreed to proceed with surgical intervention. Written consent has been obtained.
[2022-04-07] MEDS ORDERED: BUPIVACAINE/EPINEPHRINE 0.5% MPF 1:200,000 30 ML VIAL ONE (17:46)
[2022-04-07] MEDS ORDERED: DEXAMETHASONE SOD INJ 4 MG/ML VIAL ONE (17:56)
[2022-04-07] MEDS ORDERED: ONDANSETRON INJ 2 MG/ML 2 ML VIAL ONE (17:56)
[2022-04-07] MEDS ORDERED: KETOROLAC 30 MG/ML VIAL ONE (19:29)
--- NOTE | 2022-04-07 19:50 | Post Operative Brief Note ---
Immediate Post Op Note v1 Date of Surgery April 07, 2022 Pre & Post Diagnosis Operation Date: 04/07/22 07:00 Pre-Op Diagnosis: Left Tibia and Fibula Fracture Post-Op Diagnosis: Left Tibia and Fibula Fracture I identified the patient and participated in the time-out.: Yes Procedure Operation Date: 04/07/22 07:00 Actual Procedures p Left Open Reduction Internal Fixation Intramedullary Nail Tbial(Left) - Nhan White DO Surgeon Nhan White, Wood Gluer None Estimated Blood Loss 50 Findings Consistent with Post-Op Diagnosis See dictation Complications None
[2022-04-07] MEDS: fentaNYL citrate 100 MCG/2 ML VIAL IV PRN ×2 (19:53→19:58)
--- NOTE | 2022-04-07 19:59 | Operative Report ---
Post Operative Report Pre & Post Diagnosis Operation Date: 04/07/22 07:00 Pre-Op Diagnosis: Left Tibia and Fibula Fracture Post-Op Diagnosis: Left Tibia and Fibula Fracture I identified the patient and participated in the time-out.: Yes Procedure Operation Date: 04/07/22 07:00 Actual Procedures p Left Open Reduction Internal Fixation Intramedullary Nail Tbial(Left) - Nhan White DO Surgeon Nhan White DO Metal Organ Pipe Maker None Estimated Blood Loss 50 Findings Consistent with Post-Op Diagnosis See dictation Specimens None Complications None Indications 66-year-old female who presented to [facility] emergency department after sustaining a twisting injury and fall while hiking. She reports that she twisted her foot on a rock and noted immediate pain in her left lower extremity. She was taken the emergency department where radiographs were obtained demonstrating a distal third left tibia and fibula fracture. She was placed in a splint and admitted to medical service and orthopedics was consulted for operative management. Preoperatively I met with the patient we do lengthy discussion regarding risk benefits potential complications of left tibia intramedullary nail with possible ankle open reduction internal fixation. Those include but are not limited to: Infection, neurovascular injury, DVT, nonunion, malunion, hardware failure and need for future surgery. After reviewing these she elected proceed with surgical intervention and written consent was obtained. Description of Procedure Implants: Synthes 10 mm x 315 mm tibial nail EX, 5 mm x 36 mm locking screw, 5 mm x 42 mm locking screw, 5 mm x 32 mm locking screw, 5 mm x 36 mm locking screw, 4 mm x 44 mm partially-threaded cannulated screw. Patient was appropriate identified in the preoperative holding area and the left lower extremity was marked. She was then taken back to the operative suite where she received general anesthesia. She received antibiotics per protocol. She was taken over to the OSI flat top table and a nonsterile thigh tourniquet was then placed. Bone foam was then positioned under the left lower extremity. She was then prepped and draped in the standard orthopedic fashion and timeout was then performed. On preoperative evaluation there was noted to be a fracture line that extended from the fracture site down into the articular surface along the medial aspect. Therefore decision was made to place a prophylactic cannulated screw to avoid splitting the articular surface while placing the tibial nail. A percutaneous guidewire was then placed and incision was then made. Percutaneous guidewire was placed up the medial malleolus into the anterior aspect of the distal tibia. Cannulated drill was then used and a 44 mm partially-threaded cannulated screw was then placed. AP and lateral radiographs were obtained and demonstrate satisfactory position of the screw. Attention was then turned to the incision for the tibial nail. Suprapatellar incision approximately 3 cm in side was was then made through the skin electrocautery was used to dissect through the subcutaneous tissue down to the quadriceps tendon which was then split in line with the incision. A Melvin-coated trocar was then inserted suprapatellar pouch and advanced through the patellofemoral groove down to the tibial articular margin. Threaded guidewire was then inserted just medial to the lateral tibial spine and just beneath the articular margin. Proximal canal reamer was then used to open the proximal aspect. A ball-tipped guidewire was then inserted into the distal articular segment. Position of the ball-tipped guidewire was confirmed on AP and lateral fluoroscopy as well as reduction which was noted to be satisfactory with combination of traction and rotation. Length of the guidewire was then measured and a 315 mm length was selected. Starting with an 8.5 mm reamer the canal was then sequentially reamed up to a size 11.5 mm reamer to accommodate a 10 mm nail. A 10 mm x 315 mm nail was then inserted over the ball-tipped guidewire and advanced distally. Position was confirmed on AP and lateral fluoroscopy at the proximal and distal aspects. Ball-tipped guidewire was then removed. Attention was then turned to placement of the 2 medial to lateral distal interlocks. Incision was made with a scalpel and hemostat was used to dissect through the subcutaneous tissue for both static distal interlocks. Using perfect holy cross fluoroscopy both static interlocks were then drilled and a 5 mm x 36 mm screw was placed at the more proximal distal interlock followed by a 42 mm medial to lateral screw at the more distal interlock. This provided good purchase bicortically and near anatomic reduction of the fracture. Attention was then turned to placement of the 2 proximal interlocks. Proximal outrigger was then attached and proximal distal static interlock was then incision was made and hemostat was used to dissect through the subcutaneous tissue and using a guide was drilled bico rtically. A 32 mm locking screw was then placed. The proximal dynamic interlock was then marked and scheduled was then made and hemostat was used to dissect through the subcutaneous tissue down to bone and drill was used to drill bicortically and a 36 mm locking screw was placed. Proximal outrigger was then removed as well as nail supervisor speech. Final radiographs were obtained demonstrating excellent reduction of the tibial fracture. Wounds were then copiously irrigated using normal saline solution and quadriceps tendon was closed in a [id number] fashion using 1-0 Vicryl suture. 2-0 Vicryl was used to close subcutaneous tissue followed by nae for the skin. Sterile dressings of Xeroform 4 x 4 gauze and Tegaderm were then placed. Patient was then placed in a well-padded posterior slab splint. Patient tolerated the procedure well was taken the recovery room in hemodynamically stable condition. I attest to the content of the Intraoperative Record and any orders documented therein. Any exceptions are noted below.
[2022-04-07] MEDS ORDERED: NALOXONE HCL 0.4 MG/1 ML VIAL/CARP IV PRN (20:01)
--- NOTE | 2022-04-07 20:27 | Fluoroscopy Report ---
FL tibia/fibula LT 2V CLINICAL HISTORY: LT TIBIAL NAIL COMPARISON STUDY: Left ankle radiographs and CT of the left ankle March 06, 2022. FLUOROSCOPY TIME: 1 minute and 13 seconds. FLUOROSCOPIC IMAGES: 7 FINDINGS: Fluoroscopy was provided during internal fixation of the distal left tibial fracture with i ntramedullary juan and distal screws. An additional screw within the medial malleolus is noted. Fractu re alignment has improved and appears near anatomic. A fibular fracture is again noted. Hardware is i ntact. There are no unexpected radiopaque foreign bodies. IMPRESSION: Fluoroscopy provided during internal fixation of the distal left tibial fracture. ACT 112: Negative or not required by law. Electronically signed by: Juan Diego Jade M.D. 04/07/2022 8:25 PM
--- NOTE | 2022-04-07 20:30 | Anesthesiology Progress Note ---
Date of Service April 07, 2022 Anesthesia Post Procedure Vital Signs Vital Signs: Temp Pulse Pulse Pulse Resp BP Pulse Ox 04/07/22 20:10 88 22 164/86 H 97 04/07/22 20:00 77 12 158/82 H 97 04/07/22 19:51 36.3 C L 89 15 173/92 H 98 04/07/22 16:35 36.5 C 88 22 170/65 H 96 04/07/22 14:56 37.0 C 66 18 136/80 96 04/07/22 07:25 36.8 C 71 20 146/92 H 97 04/06/22 22:11 36.9 C 66 18 154/92 H 95 O2 Del Method O2 Flow Rate 04/07/22 20:10 Room Air 04/07/22 20:00 Oxymask 4 04/07/22 19:51 Oxymask 10 04/07/22 16:35 Room Air 04/07/22 14:56 Room Air 04/07/22 07:25 Room Air 04/06/22 22:11 Room Air Pain Intensity Left Leg: Pain Intensity: 3 Transfer of Care Handoff Completed per policy Notes Mental Status: alert / awake / arousable Patient Amnestic to Procedure: Yes Nausea / Vomiting: adequately controlled Pain: adequately controlled Airway Patency, RR, SpO2: stable & adequate BP & HR: stable & adequate Hydration State: stable & adequate Anesthetic Complications: no major complications apparent and Pt Satisfied with anesthetic care Notes: The patient is awake and comfortable. Her vital signs are stable.
[2022-04-08] MEDS: MoRPHine SULFATE 2 MG/ML CARP IV PRN (02:17)
[2022-04-08] MEDS: ceFAZolin 2000MG 2,000 MG/15 ML SYR IV SCH ×2 (04:26→12:30)
[2022-04-08] MEDS: CALCIUM CARBONATE 1250MG TAB PO SCH ×2 (08:40→20:47)
[2022-04-08] MEDS: ASPIRIN 81 MG ECTAB PO SCH ×2 (08:41→20:47)
[2022-04-08] MEDS: MULTIVITAMIN TAB PO SCH (08:41)
--- NOTE | 2022-04-08 11:44 | Orthopedic Progress Note ---
Date of Service April 08, 2022 Assessment & Plan (1) Closed fracture of left distal tibia: Plan: POD 1 s/p Left IM Nailing Distal Tibia Fx/ Left Fibular Fx PT/OT protocols - PWB LLE DVT prophylaxis - ASA bid Pain management as written. DC planning - Pt will possibly require Rehab stay prior to going home. Admission and Anticipated Discharge Date Admission Date: April 06, 2022 Subjective POD 1 Pt resting in bed. Pain control is adequate. States she is feeling pretty good today. Had difficulty with PT this AM. Feels she will need a Rehab stay prior to going home. Physical Exam Physical Exam: Splint/dressing C/D/I. Calves soft, NT. NV intact. Toes mobile. Cap refill less than 2 seconds. Results & Data ([facility]) Vital Signs (Past 12 Hours) Vital Signs Temp Pulse Resp BP Pulse Ox O2 Del Method O2 Flow Rate 04/08/22 07:40 36.4 C L 55 L 16 121/72 99 Nasal Cannula 2 04/08/22 04:00 36.8 C 67 18 122/77 92 Nasal Cannula 2 04/08/22 00:04 36.9 C 70 18 131/76 97 Nasal Cannula 2
--- NOTE | 2022-04-08 14:42 | Hospitalist Progress Note ---
Date of Service April 08, 2022 Assessment & Plan (1) Closed fracture of left distal tibia: Plan: - XR: Comminuted intra-articular fracture of the distal tibia and spiral fracture of the distal fibula with associated soft tissue swelling. The tibiofibular syndesmosis is likely involved. - CT ordered per orthopedic recommendations. - Orthopedic consulted, recommending medical admission, pod#1 s/p L ORIF and IM nail tibia - Pain control: Tylenol for mild pain and converted IV pain meds to OxyIR for tiered pain control - PT/OT evals - DVT ppx ordered by ortho as ASA 81mg BID - I/S post op for atelectasis/pna prevention - CM assist in dc planning pending her therapy evals-do believe she would benefit from acute rehab prior to d/c home Plan Medically stable for dc to acute rehab when facility found/accepted/insurance auth received. Will discuss plan w/ Dr. Parry. Admission and Anticipated Discharge Date Admission Date: April 06, 2022 Subjective Patient seen on daily rounds this morning. She is resting comfortably in bed, reports that her left leg pain is adequately controlled. Denies cp or dyspnea. Review of Systems Review of Systems: All systems reviewed and are unremarkable except as noted in HPI and below. Denies fever, chills, fatigue, headache, nasal congestion, sore throat, cough, chest pain, shortness of breath, palpitations, orthopnea, PND, abdominal pain, n/v/d, constipation, dysuria, hematuria, frequency, back pain, easy bruising or bleeding, skin lesions or rashes. Physical Exam Physical Exam: GENERAL: 66 yo Well-developed, well-nourished WF. NAD. LUNGS: Clear to auscultation bilaterally. No W/R/R. CARDIOVASCULAR: Regular rate and rhythm. No M/G/R. No JVD. ABDOMEN: Soft, non-tender and non-distended. BS normoactive x 4 quad. EXTREMITIES: No edema. Non-tender. Peripheral pulses +2/4. LLE dressing in place. Cap refill <2 sec. DP pulse +2/4 NEUROLOGIC: A&O x3. PSYCHIATRIC: Cooperative. Appropriate mood and affect. SKIN: Warm, dry, intact. No rashes or lesions. Results & Data Results & Data ([facility]) Vital Signs (Past 12 Hours) Vital Signs Temp Pulse Resp BP Pulse Ox O2 Del Method O2 Flow Rate 04/08/22 08:05 Nasal Cannula 2 04/08/22 11:45 36.9 C 63 16 158/83 H 98 Nasal Cannula 2 04/08/22 07:40 36.4 C L 55 L 16 121/72 99 Nasal Cannula 2 04/08/22 04:00 36.8 C 67 18 122/77 92 Nasal Cannula 2 PG Care Time/CCT Total # of Minutes Spent Total Time Spent with Patient: Total time spent is greater than 50% in coordination of care (as documented) at patient's floor/unit and/or counseling patient: Coding Level of Care Code 53298 Subseq Hosp Care Lvl 2 Diagnoses Closed fracture of left distal tibia S82.302A
[2022-04-08] MEDS ORDERED: oxyCODONE HCL IR 5 MG TAB (IMMEDIATE RELEASE) PO PRN ×2 (14:44)
[2022-04-08] MEDS: DOCUSATE SODIUM 100 MG CAP PO SCH (20:47)
[2022-04-08] MEDS: ACETAMINOPHEN 325 MG TAB PO PRN (20:47)
[2022-04-09] MEDS: CALCIUM CARBONATE 1250MG TAB PO SCH ×2 (08:41→19:36)
[2022-04-09] MEDS: DOCUSATE SODIUM 100 MG CAP PO SCH ×2 (08:41→19:37)
[2022-04-09] MEDS: MULTIVITAMIN TAB PO SCH (08:41)
[2022-04-09] MEDS: ASPIRIN 81 MG ECTAB PO SCH ×2 (08:41→19:36)
[2022-04-09] MEDS: ACETAMINOPHEN 325 MG TAB PO PRN (08:44)
--- NOTE | 2022-04-09 09:48 | Orthopedic Progress Note ---
Date of Service April 09, 2022 Assessment & Plan (1) Closed fracture of left distal tibia: Plan: POD 2 s/p Left IM Nailing Distal Tibia Fx/ Left Fibular Fx PT/OT protocols - PWB LLE DVT prophylaxis - ASA bid Pain management as written. DC planning - Pt will possibly require Rehab stay prior to going home. ortho will sign off, patient will need f/u with Dr White at [facility] 12-14 days post op. [phone] for appt. Admission and Anticipated Discharge Date Admission Date: April 06, 2022 Subjective POD 2 Pt resting in bed. Pain control is adequate. denies numbness/tingling. denies CP/SOB Physical Exam Physical Exam: left lower leg: Splint/dressing C/D/I. Calves soft, NT. NV intact. Toes mobile. Cap refill less than 2 seconds. Results & Data ([facility]) Vital Signs (Past 12 Hours) Vital Signs Temp Pulse Resp BP Pulse Ox O2 Del Method 04/09/22 07:51 37.0 C 78 16 127/81 94 Room Air 04/08/22 22:23 37.1 C 72 18 148/76 H 94 Room Air
[2022-04-09] MEDS ORDERED: bisacodyL 10 MG SUPP PR STA (11:26)
--- NOTE | 2022-04-09 13:33 | Hospitalist Progress Note ---
Date of Service April 09, 2022 Assessment & Plan (1) Closed fracture of left distal tibia: Plan: - XR: Comminuted intra-articular fracture of the distal tibia and spiral fracture of the distal fibula with associated soft tissue swelling. The tibiofibular syndesmosis is likely involved. - CT ordered per orthopedic recommendations. - Orthopedic consulted, recommending medical admission, pod#2 s/p L ORIF and IM nail tibia - Pain control: Tylenol for mild pain and converted IV pain meds to OxyIR for tiered pain control - PT/OT evals recommending rehab - DVT ppx ordered by ortho as ASA 81mg BID - I/S post op for atelectasis/pna prevention - CM assist in dc planning pending her therapy evals-do believe she would benefit from acute rehab prior to d/c home - Add bowel regimen and give a Bisacodyl 10mg supp today to induce BM Plan Medically stable for dc to acute rehab when facility found/accepted/insurance auth received. No accepting facilities as of yet. Plan d/w Dr. Mukherjee. Admission and Anticipated Discharge Date Admission Date: April 06, 2022 Subjective Patient seen on daily rounds this morning. She is resting comfortably in bed, pain is adequately controlled. Denies cp or dyspnea. Notes no BM in 4 days. Review of Systems Review of Systems: All systems reviewed and are unremarkable except as noted in HPI and below. Denies fever, chills, fatigue, headache, nasal congestion, sore throat, cough, chest pain, shortness of breath, palpitations, orthopnea, PND, abdominal pain, n/v/d, dysuria, hematuria, frequency, back pain, easy bruising or bleeding, skin lesions or rashes. Physical Exam Physical Exam: GENERAL: 66 yo Well-developed, well-nourished WF. NAD. LUNGS: Clear to auscultation bilaterally. No W/R/R. CARDIOVASCULAR: Regular rate and rhythm. No M/G/R. No JVD. ABDOMEN: Soft, non-tender and non-distended. BS normoactive x 4 quad. EXTREMITIES: No edema. Non-tender. Peripheral pulses +2/4. LLE dressing in place. Cap refill <2 sec. DP pulse +2/4 NEUROLOGIC: A&O x3. PSYCHIATRIC: Cooperative. Appropriate mood and affect. SKIN: Warm, dry, intact. No rashes or lesions. Results & Data Results & Data ([facility]) Vital Signs (Past 12 Hours) Vital Signs Temp Pulse Resp BP Pulse Ox O2 Del Method 04/09/22 07:51 37.0 C 78 16 127/81 94 Room Air PG Care Time/CCT Total # of Minutes Spent Total Time Spent with Patient: Total time spent is greater than 50% in coordination of care (as documented) at patient's floor/unit and/or counseling patient: Coding Level of Care Code 33036 Subseq Hosp Care Lvl 2 Diagnoses Closed fracture of left distal tibia S82.302A
[2022-04-09] MEDS: POLYETHYLENE (MIRALAX) 17 GM PACK PO SCH (14:08)
[2022-04-10] MEDS: ASPIRIN 81 MG ECTAB PO SCH (08:50)
[2022-04-10] MEDS: MULTIVITAMIN TAB PO SCH (08:50)
[2022-04-10] MEDS: CALCIUM CARBONATE 1250MG TAB PO SCH (08:50)
[2022-04-10] MEDS: DOCUSATE SODIUM 100 MG CAP PO SCH (08:50)
[2022-04-10] MEDS: POLYETHYLENE (MIRALAX) 17 GM PACK PO SCH (08:51)
--- NOTE | 2022-04-10 14:23 | Discharge Summary ---
Date of Service April 10, 2022 Admission HPI Per Admitting Provider Susan Bucio is a previously healthy 66-year-old female who presented to the ED today after a fall during a hike . She was walking down hill and slipped on some leaves, landing on her left leg. She had terrible pain immediately and was nearly certain she broke something. She has been unable to walk on the leg. She denies hitting her head or any loss of consciousness. She is not having pain elsewhere except for in her left ankle. She is not on any blood thinners, actually she takes no regular medications at home. She received Tylenol in the ED for pain which has been helping. Imaging showed comminuted intra-articular fracture of the distal tibia and spiral fracture of the distal fibula with associated soft tissue swelling and tibiofibular stenosis. The case was discussed with the on-call orthopedist, who recommended admission to medicine. CT of left leg ordered. Admission Exam Per Admitting Provider General: awake, alert, no apparent distress Head: Normocephalic, atraumatic ENT: PERRL, EOMI, no pharyngeal exudate, mucous membranes moist Chest: Clear to auscultation, on room air, no adventitious breath sounds Cardiac: Regular rate and rhythm, no murmur, no JVD, normal peripheral pulses, good capillary refill Abdominal: NABS x 4 quadrants, soft, nontender to palpation, no rebound, guarding or tenderness Extremities: left ankle swelling, no eccyhmosis, open wound, skin changes; mildly TTP; pulses intact 2+ b/l skin warm, sensation intact and equal b/l. Psych: Normal mood and affect Neuro: AAO x 3, strength intact bilaterally and rated 5/5, no motor deficits, speech is clear, no peripheral sensory deficits Skin: no rash or erythema Principal Diagnosis Closed fracture of left distal tibia Discharge Exam Constitutional WD/WN, vitals as above ENMT external ear and nose normal, oropharynx normal Neck trachea midline, no thyromegaly Respiratory normal respiratory effort, lungs clear to auscultation Cardiovascular RRR, no murmur, no edema Gastrointestinal (Abdomen) normal bowel sounds, soft, nontender, no hepatosplenomegaly Musculoskeletal Left lower extremity dressing in place. Capillary refill normal. DP pulse +2/4 bilaterally. Skin no rashes, warm and dry Neurologic patellar DTR's 2+ bilat, sensation intact and PERRL, EOMI, accommodation nl, no face palsy, no dysarthria Psychiatric A+Ox3, euthymic affect Discharge Data Allergies Allergy/AdvReac Type Severity Reaction Status Date / Time Sulfa (Sulfonamide Allergy Mild Rash Verified 02/17/22 11:42 Antibiotics) Consultations 04/06/22 14:13 ED Decision to Admit Stat 04/06/22 18:15 Consult Orthopedic Surgery Routine Procedures Performed Operation Date: 04/07/22 07:00 Actual Procedures p Left Open Reduction Internal Fixation Intramedullary Nail Tbial(Left) - Nhan White DO Ordered Studies 04/06/22 14:13 CT ankle LT wo con Stat 04/07/22 17:00 FL tibia/fibula LT 2V Routine Hospital Course (1) Closed fracture of left distal tibia: - XR: Comminuted intra-articular fracture of the distal tibia and spiral fracture of the distal fibula with associated soft tissue swelling. The tibiofibular syndesmosis is likely involved. - CT ordered per orthopedic recommendations. - Orthopedic consulted, recommending medical admission, pod#2 s/p L ORIF and IM nail tibia - Pain control: Tylenol for mild pain and converted IV pain meds to OxyIR for tiered pain control - PT/OT evals recommending rehab - DVT ppx ordered by ortho as ASA 81mg BID - I/S post op for atelectasis/pna prevention - CM assist in dc planning pending her therapy evals-do believe she would benefit from acute rehab prior to d/c home - Add bowel regimen, encouraged adequate po fluid intake and activity as per PT/OT Plan Medically stable for dc to acute rehab today. Case discussed with Dr Martinez Total Time Total Time Spent Total Time Spent (In Minutes): 40 minutes Discharge Plan Discharge Items Patient Disposition: Transfer Detention Fac Reason For Visit: LEFT TIB/FIB FRACTURE Discharge Diagnosis: closed fracture left distal Tibia Condition on Discharge: Fair Activity: As commented below Activity Comment: Patiet nonweight bearing LLE Lifting: Gradually increase as tolerated Exercise/Sports: Gradually increase as tolerated Weightbearing: Left non-weightbearing Non-emergency contact: Primary Care Provider Call non-emergency contact if: you have any medication questions, your symptoms worsen, your pain is not controlled, your pain is worsening, your pain is concerning for you and you have a fever Follow-up/Referrals: Amada Suarez MD [Primary Care Provider] - Nhan White DO [Surgeon] - (2 weeks post op) Diet: Regular Addtl Attending Provider Instructions: Will need continued PT/OT Will need to follow up with Dr White at [facility] 12 - 14 days post op. (Operation was 04/07/22) Addtl Plate Hanger Provider Instructions: ACTIVITY RECOMMENDATIONS: * remain non-weightbearing on your left lower leg SPECIAL CARE INSTRUCTIONS: * Some drainage onto the dressing is normal and is no cause for alarm. * Some swelling is natural especially after walking. When resting, keep your foot elevated above the level of your heart. * Call the doctor's office at if you notice increased drainage, fever over 101 degrees F. or severe constant pain. BANDAGE: * Leave bandage/cast in place unless otherwise directed. * Keep bandage/cast dry at all times. FOLLOW UP VISIT: If appointment is not already scheduled: Please call [facility] to make a follow-up appointment 12-14 days after your surgery at . Pending Studies at Discharge: No Stand-Alone Forms: My [facility] Skilled Items Patient informed of condition?: Yes DNR: No Discharge Level of Care: Skilled Communicable Disease: No Discharge Prognosis: Improving Lines: None Urinary Catheter: No Medications and DC Order Prescriptions: New polyethylene glycol 3350 [Miralax] 17 gram Powder In Packet 17 g PO DAILY MDD 17 gm PRN (Reason: constipation) 30 Days Qty: 30 0RF aspirin 81 mg Tablet,Delayed Release (Dr/Ec) 81 mg PO BID Qty: 30 0RF docusate sodium 100 mg Capsule 100 mg PO BID Qty: 60 0RF multivitamin with folic acid [Daily-Ej (with folic acid)] 400 mcg Tablet 1 tab PO QAM Qty: 30 0RF Continued calcium carbonate 600 mg calcium (1,500 mg) tablet 600 mg PO BID diphenhydramine HCl [Allergy (diphenhydramine)] 25 mg tablet 25 mg PO TID PRN acetaminophen [Tylenol] 325 mg capsule 325 mg PO QID PRN Discontinued ibuprofen [Motrin IB] 200 mg capsule 200 mg PO Q6H PRN Discharge Orders: Discharge Order (Routine); Ordered 04/10/22 Ordered By: Mercedes Higgins Admission Data Admit Date/Time: 04/06/22 14:28 Attending Provider: Niels Mukherjee Admit Provider: Terry Cox Primary Care Provider: Amada Suarez Other Providers: Terry Cox ; Nhan White ; [facility] ; [place], [place] ; [facility] Other Interventions: Discharge Summary Assessment (RN) Last Done: 04/10/22 16:09 Supervising Physician Co-Signing Physician Notes PA Supervision Note: I personally saw and examined the patient. I verified all wood points and agree with SASKIA Higgins with the following exceptions and/or additions: Summary of present stay: 66-year-old female with history of anxiety and migraines admitted following a fall during a hike, with comminuted intra- articular distal left tib/fib fractures on imaging. Is now POD #3 s/p ORIF and IM nailing by Dr. White on 04/07. Medically stable for discharge to acute rehab today. Patient without other complaints. We will continue aspirin 81 mg twice daily for DVT prophylaxis. Ortho follow-up in 2 weeks. Physical exam: Vitals reviewed Gen: Alert and oriented x3, NAD HEENT: anicteric sclerae, EOMI CV: RRR no murmurs no peripheral edema Pulm: CTAB no wheezes Abd: +BS soft NT ND no masses Ext: no edema, 2+ DP pulses Skin: no rashes, warm/dry Neuro: No focal neurologic deficits MSK: dressing clean, normal capillary refill LLE Labs, Rads, and ECG reviewed Coding Level of Care Code D/C DAY MANAGEMENT >30 MINS Diagnoses Closed fracture of left distal tibia S82.302A Time Spent (min) 40
== END 2022-04-10 17:51 | DRG 494 ==
LOC: ED 11:43 → SUATTDRO 14:28 → 3W 14:28